=== PATIENT | male | born 1990 | race Caucasian/White ===

== ENCOUNTER 2016-10-27 14:04 | Emergency (ER) | payer SELFPAY ==
[2016-10-27 14:21] VITALS: BMI 22.2
[2016-10-27] MEDS ORDERED: ALBUTEROL 6.7 GM MDI INH ONE (15:58)
[2016-10-27] MEDS ORDERED: AMOXICILLIN/CLAVULANATE 875 MG TAB PO ONE (15:58)
[2016-10-27] MEDS ORDERED: KETOROLAC TROMETHAMINE 10 MG TAB PO ONE (15:59)
--- NOTE | 2016-10-27 16:07 | EDPRACDOC ---
- General Information Chief Complaint: Headache Stated Complaint: HEADACHE Time Seen by Provider: 10/27/16 15:54 Information Source: Patient Mode Of Arrival: Car Home Medications: Home Medications Amoxicillin Trihydrate [Amoxicillin] 500 mg PO TID #21 tab 03/18/15 Ketorolac Tromethamine 10 mg PO Q8H PRN #15 tab 03/18/15 Amoxicillin/Potassium Clav [Augmentin 875-125 Tablet] 1 each PO BID #14 tablet 10/27/16 Ketorolac Tromethamine [Toradol] 10 mg PO Q6H PRN #20 tab 10/27/16 Allergies/Adverse Reactions: Allergies Allergy/AdvReac Type Severity Reaction Status Date / Time acetaminophen [From Percocet] Allergy Mild Rash-Genera Unverified 10/27/16 14:21 lized oxycodone HCl [From Percocet] Allergy Mild Rash-Genera Unverified 10/27/16 14:21 lized oxycodone Allergy Hives* Verified 10/27/16 14:21 - History of Present Illness Onset: 1 WK HPI: PATIENT PRESENTS C/O HEADACHE ON LEFT FRONTAL REGION INTERMITTENTLY FOR WEEKS. STATES HE HAS HAD CONGESTION. NO SORE THROAT. NO N/V. NO FEVER. NO STIFF NECK. STATES HE WAS SEEN AT [facility] AND WAS GIVEN ALBUTEROL INHALER WHICH SEEMED TO HELP WITH HIS CONGESTION AND HEADACHE Location: Reports: Frontal (LEFT) Pain Quality: Reports: Mild, Aching Associated Signs and Symptoms: Reports: Occasional Headache ED Past Medical History - History Reviewed Yes Nurses notes reviewed and agree except as marked Travel Outside of [place] in the Last 3 Months?: No - Patient Medical History Surgical History: Reports: No Significant History - Social Medical History Smoking Status: Light tobacco smoker (less than 5/day) ETOH: None Substance Abuse: None Lives With: Family Lives In: Home EDM Review of Systems - Review of Systems ROS Negative Except as Marked: Yes All systems reviewed and were negative except as marked Constitutional: No Symptoms Reported. negative: Fever, Chills, Weakness, Fatigue, Loss of Appetite Eyes: No Symptoms Reported. negative: Redness, Blurred Vision, Double Vision, Discharge, Pain, Light Sensitive, Photophobia Ears: No Symptoms Reported. negative: Pain, Hearing Loss, Drainage, Ear Pulling Throat: No Symptoms Reported. negative: Pain, Swelling Nose: No Symptoms Reported. negative: Congestion, Bleeding, Discharge, Injection, Swelling, Deformity, Ecchymosis, Tender, Abrasion, Laceration Mouth: No Symptoms Reported. negative: Pain, Drooling Respiratory: No Symptoms Reported. negative: Cough, Brassy Cough, Barky Cough, Shortness of Breath, Wheezing, Hemoptysis Cardiovascular: No Symptoms Reported. negative: Chest Pain, Palpitations, Syncope, Edema, Orthopnea, PND, Skin Mottling, Cyanosis Gastrointestinal: No Symptoms Reported. negative: Pain, Constipation, Nausea, Vomiting, Diarrhea, Melena, Formula Intolerance Genitourinary: No Symptoms Reported. negative: Dysuria, Hematuria, Frequency, Discharge, Bleeding, Testicular Pain, Neurological: Headache. negative: Dizziness, Gait Difficulty, Numbness, Seizure , Speech Difficulty, Weakness Musculoskeletal: No Symptoms Reported. negative: Neck, Chestwall, Ribs, Back, Shoulder, Arm, Elbow, Forearm, Wrist, Hand, Pelvis, Hip, Femur, Knee, Leg, Ankle , Foot Integumentary: No Symptoms Reported. negative: Itching, Rash, Bruising, Wound Allergic/Immunologic: No Symptoms Reported. negative: Hives, Itching Hematologic: No Symptoms Reported. negative: Lymphadenopathy, Easy Bruising, Easy Bleeding Endocrine: No Symptoms Reported. negative: Weight Gain, Weight Loss Psychiatric: No Symptoms Reported. negative: Anxiety, Depression, Hallucinations, Insomnia, Suicidal - Physical Exam Constitutional: Alert (Awake), No apparent distress Oriented to: Time, Person, Place Last recorded Vital Signs: Last Vital Signs Temp 97.4 F L 10/27/16 14:21 Pulse 62 10/27/16 14:21 Resp 18 10/27/16 14:21 BP 117/62 10/27/16 14:21 Pulse Ox 98 10/27/16 14:21 Oxygen Pulse Oxygen Saturation 98 O2 Device Oxygen Flow Rate Fraction of Inspired Oxygen ( FIO2) - HEENT Head: Normal ( normocephalic) Eye Exam: Normal (PERRL, EOMI, Sclera white) Oropharynx: Normal (Pharynx:Moist without exudate,Gums-no swelling) Tympanic Membrane: Normal ENT EAC: Normal TMJ: Normal Nose: No Symptoms Reported (septum midline) Neck: Normal (FROM, trachea at midline) - Respiratory/Cardiovascular Respiratory: Normal - CTA (BBS clear to auscultation without adventitious sounds ) Cardiovascular: Normal (RRR without murmur, gallop or rub) - GI Auscultation: Normal (NABS) Palpation: Normal (Soft,No rebound or guarding, non distended) Tenderness: Non tender Ambriz's Sign: Negative - Musculoskeletal Back: Normal (Non-Tender) Extremities: Normal (Normal tone, Pulses 2+ No cyanosis or edema, FROM) - Integumentary Skin: Normal, Warm, Dry Lymphatics: Normal (no adenopathy) - Neurologic Memory Impaired: Normal Motor Function: Normal (Normal tone, Pulses 2+ No cyanosis or edema, FROM) Cranial Nerve: Normal (CN II-X11 intact sensation, strength 5/5) Cerebellar: Normal Mood Description: Normal Perception: Normal Decision Time to Discharge: 16:08 - Departure Yes I personally saw and evaluated the patient. Disposition: Home Condition: Good Final Diagnosis: Sinus headache Instructions: Acute Headache (ED) Education/Counseling Given To: Patient Education/Counseling Given Regarding: Diagnosis, Treatment, Prognosis, Follow Up Referrals: None,No Provider [Primary Care Provider] - One Week Markel Mcintosh MD [Staff Physician] - One Week Prescriptions: Amoxicillin/Potassium Clav [Augmentin 875-125 Tablet] 1 each PO BID #14 tablet Ketorolac Tromethamine [Toradol] 10 mg PO Q6H PRN #20 tab PRN Reason: Pain
[2016-10-27 16:34] VITALS: PULSE 71
[2016-10-27 16:36] VITALS: BP 118/69; TEMP 98.3
== END 2016-10-27 16:34 | disposition home or self-care (01) ==
LOC: ED 14:04
DX: R51 Headache (principal); R05 Cough
CPT/HCPCS: 94640; 99282; J3490